=== PATIENT | male | born 1985 | race Caucasian/White ===

== ENCOUNTER 2023-04-12 08:29 | Outpatient (CLI) | payer OTHER ==
[2023-04-12] MEDS ORDERED: Magnevist 469MG/ML 20 ML VIAL ONE (10:32)
== END 2023-04-12 08:30 | disposition home or self-care (01) ==
LOC: CSHMRI 08:29
PROVIDERS: ATTEND Family Medicine
DX: M54.50 Low back pain, unspecified (principal); M47.816 Spondylosis without myelopathy or radiculopathy, lumbar region
CPT/HCPCS: 72158